=== PATIENT | female | born 1985 | race Hispanic/Latino ===

== ENCOUNTER 2018-04-29 19:53 | Inpatient (IN) | payer MEDICAID ==
[2018-04-29] MEDS ORDERED: Lactated Ringer's 1,000 ML IV SCH (20:15)
[2018-04-29] MEDS ORDERED: Lactated Ringer's 1,000 ML IV ONE (20:15)
[2018-04-29 22:27] LABS: BASO % 0.3 % (0.0-2.0); EOS # 0.1 K/uL (0.0-0.7); EOS % 0.5 % (0.0-4.0); HEMOGLOBIN 12.4 g/dL (11.0-16.0); LYMPH # 2.7 K/uL (1.0-4.3); LYMPH % 18.1 % (20.0-40.0); MEAN CELL VOLUME 87.6 fL (81.0-99.0); MEAN CORPUSCULAR HEMOGLOBIN 30.3 pg (27.0-31.0); MEAN CORPUSCULAR HGB CONC 34.6 g/dL (33.0-37.0); MEAN PLATELET VOLUME 7.9 fL (7.2-11.7); MONO # 1.2 K/uL (0.0-0.8); MONO % 7.8 % (0.0-10.0); NEUT # 10.8 K/uL (1.8-7.0); NEUT % 73.3 % (50.0-75.0); RBC 4.1 Mil/uL (3.80-5.20); RED CELL DISTRIBUTION WIDTH 13.1 % (11.5-14.5); WHITE BLOOD COUNT 14.7 K/uL (4.8-10.8)
[2018-04-29 22:36] LABS: SQUAMOUS EPITHIAL 5 /hpf (0-5); URINE BACTERIA OCC (<OCC); URINE BILIRUBIN NEGATIVE (NEGATIVE); URINE BLOOD NEGATIVE (NEGATIVE); URINE CLARITY Clear (Clear); URINE COLOR Yellow (YELLOW); URINE GLUCOSE (UA) NORMAL (Normal); URINE LEUKOCYTE ESTERASE TRACE Leu/uL (Negative); URINE PROTEIN NEGATIVE (NEGATIVE); URINE UROBILINOGEN NORMAL mg/dL (0.2-1.0)
[2018-04-29 22:43] LABS: ALB/GLOB RATIO 1.3 (1.0-2.1); ALBUMIN 4.1 g/dL (3.5-5.0); ALT/SGPT 25 U/L (9-52); AST/SGOT 24 U/L (14-36); BLOOD UREA NITROGEN 14 mg/dL (7-17); CALCIUM 9.7 mg/dl (8.6-10.4); GFR NON-AFRICAN AMERICAN > 60
[2018-04-30] MEDS ORDERED: Aluminum Hydroxide/Magnesium Hydroxide Susp (30 mL) ONE (05:49)
--- NOTE | 2018-04-30 09:22 | OBHP ---
Datetime: 04/29/2018 21:17 IP Adm Impression: Term, intrauterine ; Postterm, intrauterine IP Admit Plan: Admit to unit; Initiate labor induction protocol Admit Comment, IP Provider: Patient is a 32 year old at 40w2d with SARA 04/27/18 by LMP who p resents to the floor for scheduled induction of labor. Patient is doing well, offers no complaints at this time. She endorses +FM, denies CTX, VB or LOF. States that she feels pressure in her vagina. Issues: Denies, patient was a late transfer of care to [facility] in March [address] Cira hemphill's office. OB Hx: 1. 2015 SAB at 5 weeks 2. Current [employer] Hx: LMP 07/21/17 [facility] 18//7 days Denies history of fibroids, ovarian cysts, STDs Never had a pap smear Allergies: NKDA Medications: PNV Medical History: Denies Surgical History: Oral surgery for molar removal Social History: Denies alcohol, tobacco, or drug use Family History: Mother - HTN; Father - HTN PE: see above A/P: This is a 32 year old at 40w2d who presents for induction of labor 2/2 postdates -Admit to unit -CEFM and TOCO -Admission labs: CBC, CMP, T+S, UA -LR @ 125 cc/hr -GBS negative -Cervidil for cervical rippening agent -Plan discussed with Dr Phillip Mayers DO PGY-2 Pelvic Type - PN: Adequate Extremities - PN: Normal Abdomen - PN: Normal Back - PN: Normal Breast - PN: Not Done Lungs - PN: Normal Heart - PN: Normal Thyroid - PN: Normal Neurologic - PN: Normal HEENT - PN: Normal General - PN: Normal FHR - Baseline A Provider: 150 Membranes, Provider: Intact Contraction Comments Provider: irregular Comments, ACOG Physical Exam: VSS SVE: 1-2/50/-3 IP Hx Assessment: The History has been Reviewed and is Current EGA AdmitDate IP: 40.2 Vital Signs Provider: Reviewed IP Chief Complaint: Scheduled induction of labor NICHD Variability Prov Fetus A: Moderate 6-25bpm NICHD Accel Fetus A IP Provider: 15X15 FHR Category Provider Fetus A: Category I NICHD Decel Fetus A IP Provider: None Dilatation, Provider: 1-2 Effacement, Provider: 50 Station, Provider: -3 Genitourinary Exam: Normal DTRs - PN: Normal
--- NOTE | 2018-04-30 09:27 | US ---
PROCEDURE: HISTORY: LMP 07/21/2017 per technologist history from patient patient was induced yesterday. COMPARISON: None TECHNIQUE: Transabdominal scanning of the maternal pelvis and a 2nd/ 3rd trimester with image documentation FINDINGS: Fetus: Single intrauterine gestation heart rate: Present at 135 beats per minute presentation: Cephalic Placenta: Anterior fundalwithout previa or abruption. Inferior placenta an more than 2 cm from the internal cervical os. Amniotic fluid : Normal appearin.24 cm anatomy: Limited due to late gestation. biometrics: Gestational age by ultrasound: 40 weeks 3 days +/-2 weeks 6 days. Estimated weight: 3898g +/-585 g Maternal factors: Uterus: Unremarkable. No myometrial masses Cervix:Short at 2.2 cm length Free fluid: None Biophysical profile: Breathin Gross body movements: 2 Limb tone: 2 Amniotic Fluid: 2 Total biophysical profile: 8/8 IMPRESSION: Single intrauterine gestation with normal cardiac activity. presentation - cephalic. No previa . Biophysical profile 8/8 Short cervical length at 2.2 cm. Induction history as detailed above. Clinical correlation and follow-up recommended.
--- NOTE | 2018-04-30 09:27 | OBADHP ---
Datetime: 04/29/2018 21:17 Admit Comment, IP Provider: Patient is a 32 year old at 40w2d with SARA 04/27/18 by LMP who p resents to the floor for scheduled induction of labor. Patient is doing well, offers no complaints at this time. She endorses +FM, denies CTX, VB or LOF. States that she feels pressure in her vagina. Issues: Denies, patient was a late transfer of care to [facility] in March [address] Cira hemphill's office. OB Hx: 1. 2015 SAB at 5 weeks 2. Current [employer] Hx: LMP 07/21/17 [facility] 18//7 days Denies history of fibroids, ovarian cysts, STDs Never had a pap smear Allergies: NKDA Medications: PNV Medical History: Denies Surgical History: Oral surgery for molar removal Social History: Denies alcohol, tobacco, or drug use Family History: Mother - HTN; Father - HTN PE: see above A/P: This is a 32 year old at 40w2d who presents for induction of labor 2/2 postdates -Admit to unit -CEFM and TOCO -Admission labs: CBC, CMP, T+S, UA -LR @ 125 cc/hr -GBS negative -Cervidil for cervical rippening agent -Plan discussed with Dr Phillip Mayers DO PGY-2 Pelvic Type - PN: Adequate Extremities - PN: Normal Abdomen - PN: Normal Back - PN: Normal Breast - PN: Not Done Lungs - PN: Normal Heart - PN: Normal Thyroid - PN: Normal Neurologic - PN: Normal HEENT - PN: Normal General - PN: Normal FHR - Baseline A Provider: 150 Membranes, Provider: Intact Contraction Comments Provider: irregular Comments, ACOG Physical Exam: VSS SVE: 1-/-3 IP Hx Assessment: The History has been Reviewed and is Current Vital Signs Provider: Reviewed IP Chief Complaint: Scheduled induction of labor NICHD Variability Prov Fetus A: Moderate 6-25bpm NICHD Accel Fetus A IP Provider: 15X15 FHR Category Provider Fetus A: Category I NICHD Decel Fetus A IP Provider: None Dilatation, Provider: 1-2 Effacement, Provider: 50 Station, Provider: -3 Genitourinary Exam: Normal DTRs - PN: Normal EGA AdmitDate IP: 40.2 IP Adm Impression: Term, intrauterine ; Postterm, intrauterine ; Intact Membranes IP Admit Plan: Admit to unit; Initiate labor induction protocol
--- NOTE | 2018-04-30 09:48 | OBPN ---
Datetime: 04/30/2018 07:50 IP Progress Impression: Reassuring heart rate; Reactive non-stress test IP Informed Consent Obtain: Vaginal Delivery IP Procedures: Sterile Vag Exam; Ultrasound; Biophysical Profile IP Progress Plan: Continue present management; Anticipate Vaginal Delivery Membranes, Provider: Intact Contraction Comments Provider: Irregular FHR - Baseline A Provider: 130 Gestation - Est Wks by US: 40.3 Presentation-Admit: Vertex IP Progress Note Comment: Pt seen and examined Cervidil fell out while voiding this AM and after 10 hours in Mild vaginal spotting and mild, irregular contractions Requesting Breakfast and ordered FH 40. Appears LGA OB US ordered for EFW and BPP Pt requesting an Epidural and counseled for it. Anesthesia notified Will start Pitocin soon after the epidural Anticipate a vaginal delivery Vital Signs Provider: Reviewed; Within Normal Limits NICHD Accel Fetus A IP Provider: 10X10 FHR Category Provider Fetus A: Category I NICHD Variability Prov Fetus A: Moderate 6-25bpm Dilatation, Provider: 1-2 Effacement, Provider: 60-70 Station, Provider: -3 NICHD Decel Fetus A IP Provider: None
[2018-04-30] MEDS ORDERED: Fentanyl/Bupivacaine HCl 250 ML EPI ONE (09:59)
[2018-04-30] MEDS ORDERED: Oxytocin 30 UNIT 30 UNITS/500 ML BAG IV ONE ×2 (10:41→15:36)
--- NOTE | 2018-04-30 11:42 | OBPN ---
Datetime: 04/30/2018 11:29 IP Progress Impression: Normal progression of labor; Reassuring heart rate; Reactive non-stres s test IP Informed Consent Obtain: Vaginal Delivery IP Procedures: Sterile Vag Exam; Epidural Placement IP Progress Plan: Continue present management; Induction; Anticipate Vaginal Delivery Membranes, Provider: Intact Contraction Comments Provider: 3-4 FHR - Baseline A Provider: 130 Gestation - Est Wks by US: 40.3 Weight - Estimated: 3898 Presentation-Admit: Vertex IP Progress Note Comment: Pt seen and examined Edpiral placed by Anesthesia Tracing Cat 1 Irregular contractions Recurent emesis. Zofran, Reglan given Will Start Pitocin to continue IOL Labs reviewed and WNL Anticipate Vaginal Delivery Vital Signs Provider: Reviewed Vital Signs Provider Details: Maternal Tachycardia. Pt very anxious NICHD Accel Fetus A IP Provider: 10X10 FHR Category Provider Fetus A: Category I NICHD Variability Prov Fetus A: Moderate 6-25bpm Dilatation, Provider: 3 Effacement, Provider: 80 Station, Provider: -3 NICHD Decel Fetus A IP Provider: None
[2018-04-30] MEDS ORDERED: Oxytocin 30 UNIT 30 UNITS/500 ML BAG IV SCH ×2 (11:45→17:24)
--- NOTE | 2018-04-30 16:00 | OBPN ---
Datetime: 04/30/2018 14:30 IP Progress Impression: Reassuring heart rate IP Informed Consent Obtain: Vaginal Delivery IP Procedures: Artificial ROM; Intrauterine Pressure Catheter; Scalp Electrode; Sterile Vag Ex am IP Progress Plan: Induction; Anticipate Vaginal Delivery Membranes, Provider: Ruptured Amniotic Fluid Color, Provider: Bloody FHR - Baseline A Provider: 140 Gestation - Est Wks by US: 40.3 Presentation-Admit: Vertex IP Progress Note Comment: Pt seen and examined Minimal cervical change with Pitocin at 16 mU/min Tracing remained Cat 1 AROM with bloody tinged fluid IUPC and ISL placed with ease Epidural working well Hope for a vaginal delivery Vital Signs Provider: Reviewed; Within Normal Limits NICHD Accel Fetus A IP Provider: 10X10 FHR Category Provider Fetus A: Category I NICHD Variability Prov Fetus A: Moderate 6-25bpm Dilatation, Provider: 3-4 Effacement, Provider: 80 Station, Provider: -3 NICHD Decel Fetus A IP Provider: None
[2018-04-30] MEDS ORDERED: Oxytocin 10 Units/ml Inj ONE (21:18)
[2018-04-30] MEDS ORDERED: Oxycodone/Acetaminophen 5/325 mg Tab PO PRN (21:21)
[2018-04-30] MEDS ORDERED: Benzocaine/Menthol 20%-0.5% Topical Spray (60 ml) TOP PRN (21:21)
[2018-04-30] MEDS ORDERED: Oxytocin 10 Units/ml Inj IM ONE (21:24)
--- NOTE | 2018-04-30 21:59 | OBPN ---
Datetime: 04/30/2018 19:36 IP Progress Impression: Normal progression of labor; Reassuring heart rate IP Progress Plan: Continue present management; Augmentation; Anticipate Vaginal Delivery Membranes, Provider: Ruptured Contraction Comments Provider: q2-3 min FHR - Baseline A Provider: 140 IP Progress Note Comment: Patient seen and examined at bedside. Resting comfortably. SVE: /+2 A/P: Patient is a 32 year old at 40w3d in active labor -Reassuring status -Continue pitocin -We will start pushing -Anticipate vaginal delivery Plan discussed with Dr Phillip Mayers DO PGY-2 Vital Signs Provider: Reviewed FHR Category Provider Fetus A: Category I NICHD Variability Prov Fetus A: Moderate 6-25bpm Dilatation, Provider: 10 Effacement, Provider: 100 Station, Provider: 2 NICHD Decel Fetus A IP Provider: None Datetime: 04/30/2018 18:11 NICHD Accel Fetus A IP Provider: 15X15
--- NOTE | 2018-04-30 22:30 | OBDS ---
DELIVERY PERSONNEL Delivery Doctor: Salma Fisher DO Physician Executive: Mariela Rodríguez RN Anesthesiologist: HOSSEIN MATERNAL INFORMATION Delivery Anesthesia: Epidural Medications in Delivery: PITOCIN _ METHERGINE Estimated Blood Loss (ml): 300 Placenta Cultured: No Maternal Complications: None RN Comments: LIVE BABY BOY SKIN TO SKIN DONE BREAST FEEDING STARTED Provider Comments: of viable male from CHARLES position after clampping and cutting a tight CNC x 1 and over a medial episiotomy with second degree perineal laceration. APGARS 9 and 9. we ight 7lbs 12oz. Cord blood and cord pH obtained and sent. EBL 300cc. Mild uterine atony ressolved with Methergine x 2 doses and Pitocin IV and IM. Medial episiotomy and second degree perineal laceration were repaired with 2-0 Vicryl suture and 3 -0 chromic suture. Patient and tolerated the procedure well and are recovering in stable cond ition. Dr Fisher was present for the entire delivery. LABOR SUMMARY EDC: 04/27/2018 00:00 LABOR INFORMATION Cervical Ripening Agents: Cervidil (Annotations: medication came out during the use of the bathroom. ) Group B Beta Strep: Negative Steroids Given: None Reason Steroids Not Administered: Not Applicable MEMBRANES Membranes Rupture Method: Artificial Rupture of Membranes: 04/30/2018 13:55 Length of Rupture (hrs): 6.73 Amniotic Fluid Color: Bloody Amniotic Fluid Amount: Small Amniotic Fluid Odor: Normal STAGES OF LABOR Stage 3 hrs: -11 Stage 3 min: -53 VAGINAL DELIVERY Episiotomy: Median Laceration Extension: Second Degree Laceration Type: Perineal Laceration Repair: Yes Laceration Repair Note: 2-0 vicryl and 3-0 chromic suture used to repair laceration and episiotomy w ith no complications. Sponge Count Correct: Yes Sharps Count Correct: Yes BABY A INFORMATION Delivery Date/Time: 04/30/2018 20:39 Method of Delivery: Vaginal Born in Route : No : N/A Forceps: N/A Vacuum Extraction: N/A Shoulder Dystocia : No SHOULDER DYSTOCIA BABY A Infant Delivery Date/Time: 04/30/2018 20:39 PRESENTATION/POSITION BABY A Presentation: Cephalic Cephalic Presentation: Vertex Vertex Position: Right Occipital Anterior PLACENTA INFORMATION BABY A Placenta Delivery Time : 04/30/2018 08:46 Placenta Method of Delivery: Spontaneous Placenta Status: Delivered SCORES BABY A Heart Rate 1 min: >100 bpm Resp Effort 1 min: Good Cry Reflex Irritability 1 min: Cough or Sneeze or Pulls Away Muscle Tone 1 min: Active Motion Color 1 min: Body [employer], Extremities Blue Resuscitation Effort 1 min: Tactile Stimulation SCORE 1 MIN: 9 Heart Rate 5 min: >100 bpm Resp Effort 5 min: Good Cry Reflex Irritability 5 min: Cough or Sneeze or Pulls Away Muscle Tone 5 min: Active Motion Color 5 min: Body [employer], Extremities Blue Resuscitation Effort 5 min: Tactile Stimulation SCORE 5 MIN: 9 INFORMATION BABY A Gestational Age at Delivery: 40.3 Gestational Status: Term Outcome : Liveborn Infant Condition : Stable Infant Sex: Male IDENTIFICATION/MEDS BABY A ID Band Number: [id number] ID Band Location: Left Leg; Left Arm Sensor Applied: Yes Sensor Number: [id number] Sensor Location : Cord Clamp Vitamin K Given : Not Given Erythromycin Given: Not Given WEIGHT/LENGTH BABY A Infant Birthweight (gms): 3510 Infant Weight (lb): 7 Infant Weight (oz): 12 Infant Length Inches: 20.50 Length cms: 52.1 CORD INFORMATION BABY A No. Cord Vessels: 3 Nuchal Cord : Around Neck x1, Tight Cord Blood Taken: Yes Suction: Mouth; Nose
[2018-05-01 08:05] LABS: BASO # 0.1 K/uL (0.0-0.2); BASO % 0.3 % (0.0-2.0); EOS % 0.1 % (0.0-4.0); MEAN CORPUSCULAR HEMOGLOBIN 31.1 pg (27.0-31.0); MEAN CORPUSCULAR HGB CONC 34.7 g/dL (33.0-37.0); MEAN PLATELET VOLUME 7.8 fL (7.2-11.7); MONO # 1.7 K/uL (0.0-0.8); NEUT # 12.8 K/uL (1.8-7.0); NEUT % 77.6 % (50.0-75.0); RBC 3.26 Mil/uL (3.80-5.20); RED CELL DISTRIBUTION WIDTH 12.8 % (11.5-14.5); WHITE BLOOD COUNT 16.5 K/uL (4.8-10.8)
[2018-05-01 08:10] LABS: HEMOGLOBIN 10.1 g/dL (11.0-16.0); MEAN CELL VOLUME 89.6 fL (81.0-99.0)
--- NOTE | 2018-05-01 10:48 | OBPPN ---
Datetime: 05/01/2018 10:43 PP Pain Prov: Within normal limits PP Abdomen/Uterus Prov: Normal PP Lochia Prov: Normal PP Impression Prov: Normal progression PP Plan Prov: Continue present management PP Progress Note Prov: s/p IOL for Post Dates- NSD 1/3 PPD#1 stable and afebrile H/H stable C/o frequent urination- UA ordered breast feeding without difficulty Continue to monitor IP PP Procedures: None Vital Signs Provider PP: Reviewed
[2018-05-01 16:33] LABS: SQUAMOUS EPITHIAL 1 /hpf (0-5); URINE BACTERIA FEW (<OCC); URINE BILIRUBIN NEGATIVE (NEGATIVE); URINE BLOOD 3+ (NEGATIVE); URINE CLARITY Clear (Clear); URINE COLOR Yellow (YELLOW); URINE GLUCOSE (UA) NORMAL (Normal); URINE LEUKOCYTE ESTERASE 2+ Leu/uL (Negative); URINE PROTEIN NEGATIVE (NEGATIVE); URINE UROBILINOGEN NORMAL mg/dL (0.2-1.0)
[2018-05-01] MEDS ORDERED: Hydrocortisone 1% Cream (30 GM) TOP SCH (19:00)
[2018-05-02 07:46] VITALS: BP 97/67; PULSE 106; RESP 18; TEMP 98; O2SAT 97
[2018-05-02] MEDS ORDERED: Benzocaine/Menthol 20%-0.5% Topical Spray (60 ml) TOP PRN (11:18)
--- NOTE | 2018-05-02 11:33 | OBDCSUM ---
Datetime: 05/02/2018 11:29 Disch Instr Activity: Normal activity Disch Instr Diet: Regular Discharge Instructions, Provider: Routine instructions given Discharge Diagnosis, Provider: Term Delivered Discharge Time: 05/02/2018 11:29 Disch Activity Restrictions: No exercising; No lifting; No driving Discharge Comment, Provider: PT DOING WELL, NO BM, +FLATUS, TOLERATING PO DIET. AMBULATING WELL, DEN IES PAIN, LOCHIA MINIMAL. VSS: STABLE, AFEBRILE FUNDUS FIRM ABOVE THE UMBILICUS A/P 31 S/P 1) DISCHARGE HOME. 2) CIRC DONE Contraception after Delivery: Not Planning to Use
== END 2018-05-02 13:45 | disposition home or self-care (01) | DRG 373 ==
LOC: C.EROB 19:53 → C.4D 20:15 → C.4M 05-01 00:02
PROVIDERS: ADMIT Obstetrics & Gynecology; ATTEND Obstetrics & Gynecology
PROC: 0KQM0ZZ Repair Perineum Muscle, Open Approach (ICD-10-PCS; principal; 2018-04-30)
PROC: 0W8NXZZ Division of Female Perineum, External Approach (ICD-10-PCS; 2018-04-30)
PROC: 10E0XZZ Delivery of Products of Conception, External Approach (ICD-10-PCS; 2018-04-30)
DX: O69.1XX0 Labor and delivery complicated by cord around neck, with compression, not applicable or unspecified (principal); O48.0 Post-term pregnancy; Z3A.40 40 weeks gestation of pregnancy; O70.1 Second degree perineal laceration during delivery; O62.2 Other uterine inertia; Z37.0 Single live birth